=== PATIENT | female | born 1995 | race Hispanic/Latino ===

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

== ENCOUNTER → 2017-01-24 | Outpatient (REF) | payer OTHER ==
[~2017-01-24] MED LIST: AUGM875T28 PO; IBUP80TA PO
== END ==
LOC: M SFHCLERA 14:02
PROVIDERS: ATTEND Nurse Practitioner Family
DX: R11.11 Vomiting without nausea (principal); R05 Cough

== ENCOUNTER → 2017-05-17 | Outpatient (REF) | payer OTHER | LOC: M LAB REF 17:04 | DX: J02.9 Acute pharyngitis, unspecified (principal) | CPT/HCPCS: 87070 ==

== ENCOUNTER → 2017-05-19 | Outpatient (CLI) | payer OTHER ==
[2017-05-19 20:52] LABS: ESTIMATED AVERAGE GLUCOSE 117 MG/DL (60-110); HEMOGLOBIN A1c 5.7 %
[2017-05-19 21:03] LABS: FOLLICLE STIMULATING HORMONE 5.9 mIU/mL; LUTEINIZING HORMONE 1.8 mIU/mL
[2017-05-19 21:03] LABS: TESTOSTERONE 20 NG/DL (14-76)
[2017-05-19 21:05] LABS: FREE T4 0.95 NG/DL (0.78-1.33)
== END ==
LOC: M LRY 15:03
DX: N92.6 Irregular menstruation, unspecified (principal); E66.01 Morbid (severe) obesity due to excess calories

== ENCOUNTER → 2017-08-01 | Outpatient (CLI) | payer OTHER ==
[2017-08-01 16:38] LABS: PROGESTERONE 0.6 NG/ML
[2017-08-01 16:39] LABS: FOLLICLE STIMULATING HORMONE 26.4 mIU/mL; LUTEINIZING HORMONE 35.4 mIU/mL; PROLACTIN 11.5 NG/ML
[2017-08-01 16:48] LABS: FREE T4 0.89 NG/DL (0.78-1.33)
== END ==
LOC: M LRY 13:35
DX: N93.8 Other specified abnormal uterine and vaginal bleeding (principal)
CPT/HCPCS: 83001

== ENCOUNTER → 2017-09-18 | Outpatient (CLI) | payer OTHER ==
[2017-09-18 18:56] LABS: BASO # 0.1 10^3/uL (0.0-0.2); BASO % 0.7 % (0.0-1.0); EOS # 0.1 10^3/uL (0.0-0.50); EOS % 0.7 % (0.0-3.0); HEMATOCRIT 40.5 % (36.0-47.0); HEMOGLOBIN 13.4 g/dl (12.0-15.5); IMMATURE GRANULOCYTE % 0.3 % (0-3.0); LYMPH # 2.8 10^3/uL (1.5-6.5); LYMPH % 24.3 % (24.0-44.0); MEAN CORPUSCULAR HGB CONC 33.1 g/dl (32.0-36.5); MEAN CORPUSCULAR VOLUME 81.5 fl (80.0-96.0); MONO % 8.9 % (0.0-5.0); NEUTROPHILS # 7.6 10^3/uL (1.8-7.7); NEUTROPHILS % 65.1 % (36.0-66.0); PLATELET COUNT, AUTOMATED 366 10^3/uL (150-450); RED BLOOD COUNT 4.97 10^6/uL (4.00-5.40); RED CELL DISTRIBUTION WIDTH 14.4 % (11.5-14.5); WHITE BLOOD COUNT 11.7 10^3/uL (4.0-10.0)
[2017-09-20 09:12] LABS: RUBELLA IgG QUALITATIVE IMMUNE (IMMUNE)
[2017-09-20 09:39] LABS: HBsAg Prenatal NEGATIVE (NEGATIVE)
[2017-09-20 09:41] LABS: HIV 1&2 SCREEN CENTAUR NEGATIVE (NEGATIVE)
== END ==
LOC: M SMT 14:19
DX: Z34.81 Encounter for supervision of other normal pregnancy, first trimester (principal); Z36.89 Encounter for other specified antenatal screening; Z3A.08 8 weeks gestation of pregnancy
CPT/HCPCS: 86762

== ENCOUNTER 2017-09-29 09:01 | Emergency (ER) | payer OTHER ==
[2017-09-29 10:07] LABS: BASO # 0.1 10^3/uL (0.0-0.2); BASO % 0.6 % (0.0-1.0); EOS % 0.4 % (0.0-3.0); HEMATOCRIT 40.7 % (36.0-47.0); HEMOGLOBIN 13.8 g/dl (12.0-15.5); IMMATURE GRANULOCYTE % 0.3 % (0-3.0); LYMPH # 2.3 10^3/uL (1.5-6.5); LYMPH % 22.8 % (24.0-44.0); MEAN CORPUSCULAR HEMOGLOBIN 27.2 pg (27.0-33.0); MEAN CORPUSCULAR HGB CONC 33.9 g/dl (32.0-36.5); MEAN CORPUSCULAR VOLUME 80.1 fl (80.0-96.0); MONO # 0.9 10^3/uL (0.0-0.8); NEUTROPHILS # 6.7 10^3/uL (1.8-7.7); NEUTROPHILS % 66.9 % (36.0-66.0); PLATELET COUNT, AUTOMATED 316 10^3/uL (150-450); RED BLOOD COUNT 5.08 10^6/uL (4.00-5.40); RED CELL DISTRIBUTION WIDTH 14.5 % (11.5-14.5); WHITE BLOOD COUNT 10.1 10^3/uL (4.0-10.0)
[2017-09-29] MEDS: NS 1,000 ML IV ×2 (10:12)
[2017-09-29] MEDS: METOCLOPRAMIDE INJ 10MG/2ML VIAL (J2765) IV ×2 (10:12)
[2017-09-29 10:15] LABS: ANION GAP 14 MEQ/L (8-16); BLOOD UREA NITROGEN 6 MG/DL (7-18); CALCIUM LEVEL 9.4 MG/DL (8.5-10.1); CARBON DIOXIDE LEVEL 19 MEQ/L (21-32); CHLORIDE LEVEL 104 MEQ/L (98-107); CREATININE FOR GFR 0.48 MG/DL (0.55-1.30); GLUCOSE, FASTING 99 MG/DL (70-100); SODIUM LEVEL 137 MEQ/L (136-145)
[2017-09-29 10:34] LABS: AMORPHOUS SEDIMENT RFX SMALL (NEGATIVE); KETONE, URINE AUTO RFX 2+ mg/dL (NEGATIVE); MUCUS, URINE RFX LARGE (NEGATIVE); NITRITE, URINE AUTO RFX NEGATIVE (NEGATIVE); RBC, URINE AUTO RFX 21 /HPF (0-3); SQUAM EPITHELIAL CELL UR AURFX 31 /HPF (0-6)
[2017-09-29 10:35] LABS: LEUKOCYTE ESTERASE UR AUTO RFX 1+ (NEGATIVE); WBC, URINE AUTO RFX 54 /HPF (0-3)
== END 2017-09-29 12:32 | disposition home or self-care (01) ==
LOC: M ED 09:01
DX: O21.0 Mild hyperemesis gravidarum (principal); Z79.899 Other long term (current) drug therapy
CPT/HCPCS: J2765

== ENCOUNTER → 2017-10-13 | Outpatient (REF) | payer OTHER ==
[2017-10-13 17:35] LABS: CHLAMYDIA DNA AMPLIFICATION POSITIVE (NEGATIVE); GC DNA AMPLIFICATION NEGATIVE (NEGATIVE)
== END ==
LOC: M LAB REF 15:38
DX: Z34.81 Encounter for supervision of other normal pregnancy, first trimester (principal); Z3A.00 Weeks of gestation of pregnancy not specified
CPT/HCPCS: 87086

== ENCOUNTER → 2017-10-17 | Outpatient (REF) | payer OTHER ==
[2017-10-17 18:09] LABS: CHLAMYDIA DNA AMPLIFICATION POSITIVE (NEGATIVE)
[2017-10-18 08:58] LABS: GC DNA AMPLIFICATION NEGATIVE (NEGATIVE)
== END ==
LOC: M LAB REF 16:31
DX: Z34.81 Encounter for supervision of other normal pregnancy, first trimester (principal)

== ENCOUNTER → 2017-10-17 | Outpatient (CLI) | payer OTHER | LOC: M LRY 14:01 | DX: Z34.81 Encounter for supervision of other normal pregnancy, first trimester (principal) ==

== ENCOUNTER → 2017-11-09 | Outpatient (REF) | payer OTHER ==
[2017-11-09 22:18] LABS: CHLAMYDIA DNA AMPLIFICATION NEGATIVE (NEGATIVE); GC DNA AMPLIFICATION NEGATIVE (NEGATIVE)
== END ==
LOC: M LAB REF 17:01
DX: Z34.81 Encounter for supervision of other normal pregnancy, first trimester (principal)

== ENCOUNTER → 2017-12-19 | Outpatient (CLI) | payer OTHER | LOC: M RAD 13:00 | DX: Z34.82 Encounter for supervision of other normal pregnancy, second trimester (principal); Z36.89 Encounter for other specified antenatal screening; Z3A.21 21 weeks gestation of pregnancy | CPT/HCPCS: 76811 ==

== ENCOUNTER → 2018-02-05 | Outpatient (CLI) | payer OTHER ==
[2018-02-05 11:52] LABS: HEMATOCRIT 32.1 % (36.0-47.0); HEMOGLOBIN 9.8 g/dl (12.0-15.5); MEAN CORPUSCULAR HEMOGLOBIN 25.4 pg (27.0-33.0); MEAN CORPUSCULAR HGB CONC 30.5 g/dl (32.0-36.5); MEAN CORPUSCULAR VOLUME 83.2 fl (80.0-96.0); PLATELET COUNT, AUTOMATED 331 10^3/uL (150-450); RED BLOOD COUNT 3.86 10^6/uL (4.00-5.40); RED CELL DISTRIBUTION WIDTH 13.2 % (11.5-14.5); WHITE BLOOD COUNT 8.7 10^3/uL (4.0-10.0)
[2018-02-05 12:17] LABS: GLUCOSE CHALLENGE TEST 1 HOUR 119 MG/DL (LESS THAN 140)
== END ==
LOC: M LRY 08:34
DX: Z34.82 Encounter for supervision of other normal pregnancy, second trimester (principal)
CPT/HCPCS: 82950

== ENCOUNTER → 2018-02-12 | Outpatient (REF) | payer OTHER | LOC: M SFHCLERA 13:18 | DX: J02.9 Acute pharyngitis, unspecified (principal) ==

== ENCOUNTER → 2018-03-06 | Outpatient (CLI) | payer OTHER | LOC: M RAD 13:36 | DX: O26.843 Uterine size-date discrepancy, third trimester (principal); Z3A.31 31 weeks gestation of pregnancy | CPT/HCPCS: 76816 ==

== ENCOUNTER → 2018-03-26 | Outpatient (CLI) | payer OTHER | LOC: M RAD 12:34 | DX: O26.843 Uterine size-date discrepancy, third trimester (principal); Z3A.34 34 weeks gestation of pregnancy | CPT/HCPCS: 76816 ==

== ENCOUNTER → 2018-03-28 | Outpatient (REF) | payer OTHER | LOC: M LAB REF 16:51 | DX: Z34.83 Encounter for supervision of other normal pregnancy, third trimester (principal) ==

== ENCOUNTER 2018-04-04 14:41 | Inpatient (IN) | payer OTHER ==
[2018-04-04 17:40] LABS: ALT/SGPT 10 U/L (12-78); AST/SGOT 22 U/L (7-37); BILIRUBIN,TOTAL 0.2 MG/DL (0.2-1.0); CREATININE FOR GFR 0.59 MG/DL (0.55-1.30); LDH LACTATE DEHYDROGENASE 250 U/L (84-246); URIC ACID 4.5 MG/DL (2.6-6.0)
[2018-04-04] MEDS ORDERED: miSOPROStol 50 MCG 1/2 TAB (S0191) As Ordered (17:52)
[2018-04-04 18:13] LABS: TOTAL PROTEIN,RANDOM URINE 384.7 MG/DL (0.0-12.0)
[2018-04-04] MEDS: miSOPROStol 50 MCG 1/2 TAB (S0191) SL ×2 (18:21→21:54)
[2018-04-04 18:36] LABS: HEMATOCRIT 28.4 % (36.0-47.0); HEMOGLOBIN 8.2 g/dl (12.0-15.5); MEAN CORPUSCULAR HEMOGLOBIN 21.8 pg (27.0-33.0); MEAN CORPUSCULAR HGB CONC 28.9 g/dl (32.0-36.5); MEAN CORPUSCULAR VOLUME 75.5 fl (80.0-96.0); PLATELET COUNT, AUTOMATED 301 10^3/uL (150-450); RED BLOOD COUNT 3.76 10^6/uL (4.00-5.40); RED CELL DISTRIBUTION WIDTH 16.6 % (11.5-14.5)
[2018-04-05] MEDS: miSOPROStol 50 MCG 1/2 TAB (S0191) SL ×2 (02:17→06:01)
[2018-04-05] MEDS: LACTATED RINGER'S 1000 ML IV (10:01)
[2018-04-05] MEDS ORDERED: FENTANYL 2MCG/ML ROPIVACAINE 0.2% IN 0.9% NACL 200ML IVBAG As Ordered (11:58)
[2018-04-05 12:37] LABS: HEMATOCRIT 28.1 % (36.0-47.0); HEMOGLOBIN 8.2 g/dl (12.0-15.5); MEAN CORPUSCULAR HEMOGLOBIN 21.7 pg (27.0-33.0); MEAN CORPUSCULAR HGB CONC 29.2 g/dl (32.0-36.5); MEAN CORPUSCULAR VOLUME 74.3 fl (80.0-96.0); PLATELET COUNT, AUTOMATED 307 10^3/uL (150-450); RED BLOOD COUNT 3.78 10^6/uL (4.00-5.40); RED CELL DISTRIBUTION WIDTH 16.8 % (11.5-14.5); WHITE BLOOD COUNT 10.7 10^3/uL (4.0-10.0)
[2018-04-05] MEDS: FENTANYL/ROPIVACAINE/NACL BAG 200 ML EPIDURAL (14:14)
[2018-04-05] MEDS ORDERED: EPIDURAL COMMENT XX (14:15)
[2018-04-05] MEDS ORDERED: diphenhydrAMINE INJ 50MG/ML VIAL (J1200) IV (14:15)
[2018-04-05] MEDS ORDERED: ONDANSETRON 4MG/2ML VIAL (J2405) IV (14:15)
[2018-04-05] MEDS ORDERED: EPIDURAL/PCA KEYS XX (14:15)
[2018-04-05] MEDS ORDERED: NALOXONE INJ 0.4 MG/1 ML VIAL (J2310) IV (14:15)
[2018-04-05] MEDS ORDERED: REFRIGERATOR IV KEYS XX (14:15)
[2018-04-05] MEDS ORDERED: ePHEDrine SULFATE 25 MG/5 ML(5MG/ML) SYRINGE IV (14:15)
[2018-04-05] MEDS ORDERED: LACTATED RINGER'S 1000 ML IV (14:15)
[2018-04-05] MEDS ORDERED: OXYTOCIN 30 UNITS IN 0.9% NaCl 500ML IV BAG (J2590) As Ordered (17:19)
[2018-04-05] MEDS ORDERED: OXYTOCIN DRIP 30 UNITS in APPROPRIATE DILUENT 1 EA IV (18:24)
[2018-04-05] MEDS ORDERED: MOM 30ML SUSPENSION UDC PO (18:30)
[2018-04-05] MEDS ORDERED: ANUSOL HC CREAM 30GM TOP (18:30)
[2018-04-05] MEDS ORDERED: RHOGAM 300 MCG (1500 IU) INJ (J2790) IM (18:30)
[2018-04-05] MEDS ORDERED: DIBUCAINE 1% OINTMENT 30GM TOP (18:30)
[2018-04-05] MEDS ORDERED: METHYLERGONOVINE MALEATE 0.2 MG TAB PO (18:30)
[2018-04-05] MEDS ORDERED: DOCUSATE SODIUM 100 MG CAP PO (18:30)
[2018-04-05] MEDS ORDERED: MEASLES,MUMPS,RUBELLA VACCINE INJ (MMR-II) (90707) SC (18:30)
[2018-04-05] MEDS: IBUPROFEN 800 MG TAB PO (19:47)
[2018-04-06] MEDS: ACETAMINOPHEN 500 MG TAB PO ×2 (02:28→20:12)
[2018-04-06] MEDS: PRENATAL VITAMINS CHEWABLE TABLET PO (07:17)
[2018-04-06] MEDS: IBUPROFEN 800 MG TAB PO ×2 (07:18→17:53)
[2018-04-06] MEDS ORDERED: SLF 3 ML SYR IV (14:30)
[2018-04-06] MEDS: SLF 3 ML SYR IV (20:12)
[2018-04-07] MEDS: SLF 3 ML SYR IV (06:00)
[2018-04-07] MEDS: PRENATAL VITAMINS CHEWABLE TABLET PO (07:27)
[2018-04-07] MEDS: ACETAMINOPHEN 500 MG TAB PO (07:27)
== END 2018-04-07 11:10 | disposition home or self-care (01) | DRG 807 ==
LOC: M LDO 14:41 → M OBS 04-05 21:15 → M LDI 16:19
PROC: 3E0P7GC Introduction of Other Therapeutic Substance into Female Reproductive, Via Natural or Artificial Opening (ICD-10-PCS; 2018-04-04)
PROC: 10E0XZZ Delivery of Products of Conception, External Approach (ICD-10-PCS; principal; 2018-04-05)
DX: O14.04 Mild to moderate pre-eclampsia, complicating childbirth (principal); Z37.0 Single live birth; O99.02 Anemia complicating childbirth; D64.9 Anemia, unspecified; O99.62 Diseases of the digestive system complicating childbirth; K21.9 Gastro-esophageal reflux disease without esophagitis; Z3A.37 37 weeks gestation of pregnancy; O69.81X0 Labor and delivery complicated by cord around neck, without compression, not applicable or unspecified

== ENCOUNTER → 2018-07-16 | Outpatient (CLI) | payer OTHER ==
[~2018-07-16] MED LIST changes: +MAPA500T2 PO; +METO10TA2; +MOTR200T44 PO; +PRENCHW PO; +PROC25SU24 PR; +PROM12.56; +ZOFR4TAB16 PO
[2018-07-16 16:57] LABS: BASO # 0.1 10^3/uL (0.0-0.2); BASO % 1.1 % (0.0-1.0); EOS # 0.2 10^3/uL (0.0-0.50); EOS % 2.3 % (0.0-3.0); HEMATOCRIT 32.9 % (36.0-47.0); HEMOGLOBIN 9.6 g/dl (12.0-15.5); LYMPH # 2.9 10^3/uL (1.5-6.5); LYMPH % 40.6 % (24.0-44.0); MEAN CORPUSCULAR HEMOGLOBIN 21.1 pg (27.0-33.0); MEAN CORPUSCULAR HGB CONC 29.2 g/dl (32.0-36.5); MEAN CORPUSCULAR VOLUME 72.3 fl (80.0-96.0); MONO # 0.4 10^3/uL (0.0-0.8); MONO % 6.1 % (0.0-5.0); NEUTROPHILS # 3.5 10^3/uL (1.8-7.7); NEUTROPHILS % 49.6 % (36.0-66.0); PLATELET COUNT, AUTOMATED 443 10^3/uL (150-450); RED BLOOD COUNT 4.55 10^6/uL (4.00-5.40)
[2018-07-16 17:48] LABS: BLOOD UREA NITROGEN 11 MG/DL (7-18); CALCIUM LEVEL 8.8 MG/DL (8.5-10.1); CARBON DIOXIDE LEVEL 21 MEQ/L (21-32); CHLORIDE LEVEL 109 MEQ/L (98-107); CREATININE FOR GFR 0.61 MG/DL (0.55-1.30); GLUCOSE, FASTING 97 MG/DL (70-100); POTASSIUM SERUM 4.1 MEQ/L (3.5-5.1); SODIUM LEVEL 141 MEQ/L (136-145)
[2018-07-16 18:09] LABS: TOTAL 25(OH) VITAMIN D 13.6 NG/ML (30.0-100.0); VITAMIN B12 LEVEL 494 PG/ML
[2018-07-16 18:10] LABS: FOLATE 12.3 NG/ML
[2018-07-18 10:27] LABS: ANTINUCLEAR ANTIBODIES DIRECT Negative (Negative)
== END ==
LOC: M LRY 14:32
PROVIDERS: ATTEND Physician Assistant
DX: F45.8 Other somatoform disorders (principal)

== ENCOUNTER → 2018-10-30 | Outpatient (CLI) | payer OTHER ==
[2018-10-30 17:04] LABS: BLOOD UREA NITROGEN 9 MG/DL (7-18); CALCIUM LEVEL 8.6 MG/DL (8.5-10.1); CARBON DIOXIDE LEVEL 22 MEQ/L (21-32); CHLORIDE LEVEL 109 MEQ/L (98-107); CREATININE FOR GFR 0.72 MG/DL (0.55-1.30); FERRITIN < 3 NG/ML (8-252); GLOMERULAR FILTRATION RATE > 60.0 (>60); GLUCOSE, FASTING 114 MG/DL (70-100); IRON (FE) 22 UG/DL (50-170); PERCENT SATURATION 4.8 % (13.2-45.0); SODIUM LEVEL 139 MEQ/L (136-145); TOTAL IRON BINDING CAPACITY 458 UG/DL (250-450)
[2018-10-30 17:12] LABS: HEMOGLOBIN A1c 5.6 %
[2018-10-30 17:26] LABS: BASO # 0.1 10^3/uL (0.0-0.2); BASO % 0.8 % (0.0-1.0); EOS # 0.1 10^3/uL (0.0-0.50); EOS % 1.3 % (0.0-3.0); HEMATOCRIT 35.7 % (36.0-47.0); HEMOGLOBIN 10.8 g/dl (12.0-15.5); LYMPH # 2.8 10^3/uL (1.5-6.5); LYMPH % 37.5 % (24.0-44.0); MEAN CORPUSCULAR HEMOGLOBIN 23.1 pg (27.0-33.0); MEAN CORPUSCULAR HGB CONC 30.3 g/dl (32.0-36.5); MEAN CORPUSCULAR VOLUME 76.4 fl (80.0-96.0); MONO # 0.4 10^3/uL (0.0-0.8); MONO % 4.9 % (0.0-5.0); NEUTROPHILS # 4.2 10^3/uL (1.8-7.7); NEUTROPHILS % 55.2 % (36.0-66.0); PLATELET COUNT, AUTOMATED 412 10^3/uL (150-450); RED BLOOD COUNT 4.67 10^6/uL (4.00-5.40); WHITE BLOOD COUNT 7.6 10^3/uL (4.0-10.0)
== END ==
LOC: M LRY 12:01
PROVIDERS: ATTEND Physician Assistant
DX: D50.9 Iron deficiency anemia, unspecified (principal)